=== PATIENT | female | born 1970 | race Caucasian/White ===

== ENCOUNTER → 2021-02-18 | Outpatient (CLI) | payer BC ==
--- NOTE | 2021-02-18 09:07 | RAD ---
EXAM: Chest, 2 views. HISTORY: Pain. COMPARISON: 09/15/2016. FINDINGS: 2 views of the chest are obtained. There is no infiltrate, pleural effusion or pneumothorax . The heart is stable in size. IMPRESSION: No acute pulmonary finding. Electronically signed by: Shannan Jasmine MD (02/18/2021 9:04 AM) [id number]
== END ==
LOC: RAD 08:42
PROVIDERS: ATTEND Nurse Practitioner Family
DX: R07.89 Other chest pain (principal)
CPT/HCPCS: 71046